=== PATIENT | male | born 1950 | race Caucasian/White ===

== ENCOUNTER → 2016-11-17 | Outpatient (CLI) | payer OTHER ==
[~2016-11-17] MED LIST: ASPIRIN; ASPIRIN81 MG PO; COZAAR25 MG PO; FLOMAX0.4 M1; FLOMAX0.4 M1 PO; GABAPENTIN300 M2 PO; GABAPENTIN300 MG PO; HYDROCODON-ACE1 EACH PO; HYZAAR 50-12.51 TAB; INDOMETHACIN25 MG PO; KEFLEX500 MG PO; LO-DOSE ASPIRIN81 M1 PO; LORTAB 5/500 TA1 TA1 PO; LOSARTAN POTASS25 MG PO; METFORMIN HCL500 M1 PO; METFORMIN HCL500 M2 PO; METOPROLOL SUCC25 MG PO; METOPROLOL TAR25 MG PO; VYTORIN 10-40 M1 TAB PO; VYTORIN 10-40 T1 TAB PO; VYTORIN 10-401 EACH PO; VYTORIN 10/40 T1 TAB
--- NOTE | ~2016-11-17 | US13 ---
[facility]. [facility] A Service of [facility] & [facility] RADIOLOGY TEXT RESULTS PATIENT: MAGALI NOLASCO SR LOCATION: [facility] : 50 UNIT #: [id number] AGE: [address]: Mary Ho APRN SEX: M ORDER DR: [id number] [address] [address] [id number] O MR#: [id number] Acc #: [id number] NAME: MAGALI NOLASCO : 1950 SEX: M STUDY DATE/TIME: 11/17/2016 10:58 UNIT: [facility] ROOM: STUDY DESCRIPTION: US Aorta Limited Attending Physician: Mary Ho A.P.R.N. Referring Physician: Mary Ho A.P.R.N. Ordering Physician: Mary Ho A.P.R.N. Primary Care Physician: Jessica Villalobos M.D. MEDICAL IMAGING REPORT This report is preliminary unless electronic signature is present. EXAM Abdominal aortic duplex. HISTORY Screening for abdominal aortic aneurysm. FINDINGS Duplex imaging of the abdominal aorta was performed. The proximal aorta is patent with a maximal diameter of 1.7 cm. Mid abdominal aorta measures 1.8 and distally it measures 2 cm. There is a mild amount of plaque with no evidence of stenosis. Right and left iliac arteries are not examined. IMPRESSION Normal abdominal aortic duplex with no evidence of aneurysm. Dictated by... Mitchell Guy M.D. THIS IS AN ELECTRONICALLY VERIFIED REPORT Mitchell Guy M.D. at 11/20/2016 10:50 AM Prince TD: 11/18/2016 09:12 JOB #: [id number] MEDICAL IMAGING REPORT Page 1 of 1
== END | disposition home or self-care (01) ==
LOC: SGUS 10:42
DX: Z13.6 Encounter for screening for cardiovascular disorders (principal)
CPT/HCPCS: 76775

== ENCOUNTER → 2016-12-16 | Day surgery (SDC) | payer OTHER ==
--- NOTE | ~2016-12-16 | HP ---
Unit #: [id number] #: [id number] Patient: MAGALI NOLASCO SR [id number] [address] [place], [place] [address] [id number] O MR#: [id number] NAME: MAGALI NOLASCO SR ROOM: Age: 66 Sex: M Admission Date: 12/16/2016 : 1950 Attending Physician: Magali Gant M.D. Primary Care Physician: Jessica Villalobos M.D. HISTORY AND PHYSICAL HISTORY AND EXAM 66-year-old gentleman sent for colorectal cancer screening. His last scope was over ten years ago. He remains otherwise asymptomatic. PAST MEDICAL HISTORY Type 1 diabetes. He has had heart surgery, hernia surgery, neck surgery, and a pacemaker placed. He has a history of cervical disease, atrioseptal defect, pacemaker placement, umbilical hernia repair, and vasectomy. He has bilateral hearing aides. ALLERGIES He is allergic to atenolol. MEDICATIONS Metoprolol, Neurontin, TRUEtest glucose, metformin, Flomax, aspirin, Vytorin, and losartan. IMMUNIZATIONS He has had a recent flu vaccine and a pneumonia vaccine. FAMILY HISTORY Unaware of any chronic or inheritable diseases. SOCIAL HISTORY , two children. No longer drinks and he quit smoking. REVIEW OF SYSTEMS Unremarkable. PHYSICAL EXAMINATION VITAL SIGNS: 5'6", 155 pounds, blood pressure 123/86, pulse 68 and regular, temperature 98.2, respirations 18. GENERAL: Awake, alert and oriented. HEENT: Unremarkable. CARDIAC: Regular rate and rhythm. LUNGS: Clear. ABDOMEN: Soft. EXTREMITIES: No edema. NEUROLOGIC: Grossly intact. ASSESSMENT AND PLAN 66-year-old gentleman who has not had a screening colonoscopy since 2002, presents for colorectal cancer screening. He is otherwise asymptomatic. He denies a family history of colorectal disease. Unit #: [id number] #: [id number] Patient: MAGALI NOLASCO SR 66-year-old presented for colorectal cancer screening. I discussed the procedure with patient including risks, benefits, and complication of bowel prep, he understands and agrees to proceed. Dictated by Magali Gant M.D. LEIDY/nahid TD: 12/16/2016 13:23 JOB #: [id number] HISTORY AND PHYSICAL Page 1 of 1 X Magali Gant MD HISTORY AND PHYSICAL
--- NOTE | ~2016-12-16 | OR ---
Unit #: [id number] #: [id number] Patient: JORDAN NOLASCO SR [id number] [address] [address] [id number] O MR#: [id number] NAME: JORDAN NOLASCO SR ROOM: Date of Procedure: 12/16/2016 Admission Date: 12/16/2016 Surgeon: Jordan Gant M.D. : 1950 Attending Physician: Jordan Gant M.D. Primary Care Physician: Jessica Villalobos M.D. OPERATIVE REPORT PRIMARY CARE PHYSICIAN Jessica Villalobos M.D. PREOPERATIVE DIAGNOSIS Screening colonoscopy. POSTOPERATIVE DIAGNOSES 1. Polyp at 35 cm. 2. Benign prostatic hypertrophy. PROCEDURES PERFORMED Colonoscopy to cecum with snare polypectomy x1 and hemoclipping. ANESTHESIA Monitored anesthesia. INDICATIONS FOR PROCEDURE A 66-year-old gentleman, sent for screening colonoscopy. DESCRIPTION OF PROCEDURE The patient was admitted to [facility], positively identified, transported to endoscopy unit. After appropriate monitoring and positioning, he was sedated by the anesthesiologist. On rectal examination, there was no local anorectal pathology. Prostate was enlarged to digital exam. There were no hard nodules. Colonoscope was passed through the anal verge throughout the extent of the colon to the cecum, where the appendiceal orifice and ileocecal valve were photo-documented. On careful antegrade and retrograde visualization, only a single polyp was identified at 35 cm from the anal verge. It was completely excised using a snare and then the base was hemoclipped because of some oozing. The specimen was sent to the laboratory for pathological evaluation. The rest of the evaluation was unremarkable. The patient tolerated the procedure well and transported to recovery in stable condition. Findings were discussed with the patient's family. Dictated by... Jordan Gant M.D. RS/austyn Unit #: [id number] #: [id number] Patient: JORDAN NOLASCO SR TD: 12/17/2016 01:04 JOB #: [id number] OPERATIVE REPORT Page 1 of 1 X Jordan Gant MD X PROCEDURE OPERATIVE NOTE
== END | disposition home or self-care (01) ==
LOC: COPS 10:24
DX: Z12.11 Encounter for screening for malignant neoplasm of colon (principal); D12.6 Benign neoplasm of colon, unspecified; N40.0 Benign prostatic hyperplasia without lower urinary tract symptoms; E11.9 Type 2 diabetes mellitus without complications; Z87.891 Personal history of nicotine dependence; Z88.8 Allergy status to other drugs, medicaments and biological substances; Z79.82 Long term (current) use of aspirin; Z79.84 Long term (current) use of oral hypoglycemic drugs; Z95.0 Presence of cardiac pacemaker; Z98.52 Vasectomy status; Z98.890 Other specified postprocedural states
CPT/HCPCS: 82947; 88305